=== PATIENT | male | born 1970 | race Caucasian/White ===

== ENCOUNTER 2016-04-30 10:01 | Emergency (ER) | payer OTHER ==
[~2016-04-30] VITALS: Ht 177.8 cm; Wt 117.9 kg
[~2016-04-30 10:01] MED LIST: ACHD5005 PO; ASPI325T32 PO; CEPH-507 PO; CIPR-120 PO; CLC500CT; DEXL60CA5 PO; HYDR-2890 PO; HYDR1TAB PO; HYOS0.1216 PO; IBUP-30 PO; MAGN100T6 PO; METO-270 PO; NITR-33 PO; OMEG-160 PO; PHEN200T27 PO; POLY119P PO; REQUIP; TR1O15 TP; UBID1CAP53 PO; ZLP5T
--- OUTSIDE RECORDS SUMMARY | 2016-04-30 10:07 | XMS REPORT | Continuity of Care Document ---
Author Author [facility] Organization [facility] Address Unknown Phone Unavailable Allergies Active Description Code Type Severity Reaction Onset Reported/Identified Relationship to Patient Clinical Status Yes No Known Drug Allergies [id number] Drug Allergy Unknown N/ A 07/30/2013 Medications Problems Date Dx Coded Attending Type Code Diagnosis Diagnosed By 09/15/2011 Ot 530.11 REFLUX ESOPHAGITIS 07/15/2012 CHASTITY MAHER MD Ot 530.81 ESOPHAGEAL REFLUX 07/15/2012 CHASTITY MAHER MD Ot 574.20 CHOLELITHIASIS NOS 07/15/2012 CHASTITY MAHER MD Ot 591 HYDRONEPHROSIS 07/15/2012 CHASTITY MAHER MD Ot 592.1 CALCULUS OF URETER 07/15/2012 CHASTITY MAHER MD R Ot 787.01 NAUSEA WITH VOMITING 07/15/2012 CHASTITY MAHER MD Ot 796.2 ELEV BL PRES W/O HYPERTN 08/08/2012 GORDON KINNEY, DARRICK Juares Ot 574.20 CHOLELITHIASIS NOS 08/01/2013 GABRIELA CAMERON MD Ot 591 HYDRONEPHROSIS 08/01/2013 GABRIELA CAMERON MD Ot 592.1 CALCULUS OF URETER 08/06/2013 GABRIELA CAMERON MD Ot 592.1 CALCULUS OF URETER 08/21/2013 GABRIELA CAMERON MD Ot 592.1 CALCULUS OF URETER 08/21/2013 GABRIELA CAMERON MD Ot V74.8 SCREEN-BACTERIAL DIS NEC 09/06/2013 GABRIELA CAMERON MD Ot 592.1 CALCULUS OF URETER 04/17/2014 Ot 789.00 04/17/2014 Ot 785.1 04/17/2014 Ot V72.84 04/17/2014 Ot 397.0 04/17/2014 Ot 424.0 04/17/2014 Ot 785.1 04/17/2014 Ot V17.49 04/17/2014 Ot 789.01 04/17/2014 NADER KINNEY, ISABEL A Ot 592.0 04/17/2014 GORDON KINNEY, DARRICK Juares Ot 575.8 04/17/2014 GORDON KINNEY, DARRICK Juares Ot V72.83 04/17/2014 GORDON KINNEY, DARRICK Juares Ot V74.8 04/17/2014 RAKESH KINNEY, GABRIELA A Ot 592.1 04/17/2014 RAKESH KINNEY, GABRIELA A Ot 592.1 04/17/2014 RAKESH KINNEY, GABRIELA A Ot 592.1 04/17/2014 RAKESH KINNEY, GABRIELA A Ot V72.84 04/17/2014 RAKESH KINNEY, GABRIELA A Ot 592.1 04/17/2014 RAKESH KINNEY, GABRIELA A Ot 592.1 04/17/2014 RAKESH KINNEY, GABRIELA A Ot V72.84 04/17/2014 GUNNAR KINNEY, CHASTITY Villarreal Ot 786.50 08/12/2014 Ot 789.00 08/12/2014 Ot 785.1 08/12/2014 Ot V72.84 08/12/2014 Ot 397.0 08/12/2014 Ot 424.0 08/12/2014 Ot 785.1 08/12/2014 Ot V17.49 08/12/2014 Ot 789.01 08/12/2014 NADER KINNEY, ISABEL A Ot 592.0 08/12/2014 GORDON KINNEY, DARRICK Juares Ot 575.8 08/12/2014 GORDON KINNEY, DARRICK Juares Ot V72.83 08/12/2014 GORDON KINNEY, DARRICK Juares Ot V74.8 08/12/2014 RAKESH KINNEY, GABRIELA A Ot 592.1 08/12/2014 RAKESH KINNEY, GABRIELA A Ot 592.1 08/12/2014 RAKESH KINNEY, GABRIELA A Ot 592.1 08/12/2014 RAKESH KINNEY, GABRIELA A Ot V72.84 08/12/2014 RAKESH KINNEY, GABRIELA A Ot 592.1 08/12/2014 RAKESH KINNEY, GABRIELA A Ot 592.1 08/12/2014 RAKESH KINNEY, GABRIELA A Ot V72.84 08/12/2014 GUNNAR KINNEY, CHASTITY R Ot 786.50 08/12/2014 RAKESH KINNEY, GABRIELA Granger Ot 592.0 06/18/2015 GELLENDER DO, EDILBERTO Granger Ot I10 ESSENTIAL (PRIMARY) HYPERTENSION 06/18/2015 GELLENDER DO, EDILBERTO Granger Ot K21.9 GASTRO-ESOPHAGEAL REFLUX DISEASE WITHOUT 06/18/2015 GELLENDER DO, EDILBERTO Granger Ot R07.9 CHEST PAIN, UNSPECIFIED 06/18/2015 GELLENDER DO, EDILBERTO Granger Ot I10 ESSENTIAL (PRIMARY) HYPERTENSION 06/18/2015 GELLENDER DO, EDILBERTO Granger Ot K21.9 GASTRO-ESOPHAGEAL REFLUX DISEASE WITHOUT 06/18/2015 GELLENDER DO, EDILBERTO Granger Ot R07.9 CHEST PAIN, UNSPECIFIED 06/23/2015 Ot 789.00 ABDOMINAL PAIN, UNSPECIFIED SITE 06/23/2015 Ot 785.1 PALPITATIONS 06/23/2015 Ot V72.84 EXAM PRE-OPERATIVE NOS 06/23/2015 Ot 397.0 TRICUSPID VALVE DISEASE 06/23/2015 Ot 424.0 MITRAL VALVE DISORDER 06/23/2015 Ot 785.1 PALPITATIONS 06/23/2015 Ot V17.49 FAMILY HISTORY OF OTHER CARDIOVASCULAR D 06/23/2015 Ot 789.01 ABDOMINAL PAIN, RIGHT UPPER QUADRANT 06/23/2015 NADER KINNEY, ISABEL Granger Ot 592.0 CALCULUS OF KIDNEY 06/23/2015 GORDON KINNEY, DARRICK Juares Ot 575.8 DIS OF GALLBLADDER NEC 06/23/2015 GORDON KINNEY, DARRICK Juares Ot V72.83 EXAM PRE-OPERATIVE NEC 06/23/2015 GORDON KINNEY, DARRICK Juares Ot V74.8 SCREEN-BACTERIAL DIS NEC 06/23/2015 RAKESH KINNEY, GABRIELA Granger Ot 592.1 CALCULUS OF URETER 06/23/2015 RAKESH KINNEY, GABRIELA Granger Ot 592.1 CALCULUS OF URETER 06/23/2015 RAKESH KINNEY, GABRIELA Granger Ot 592.1 CALCULUS OF URETER 06/23/2015 RAKESH KINNEY, GABRIELA Granger Ot V72.84 EXAM PRE-OPERATIVE NOS 06/23/2015 GABRIELA CAMERON MD Ot 592.1 CALCULUS OF URETER 06/23/2015 GABRIELA CAMERON MD Ot 592.1 CALCULUS OF URETER 06/23/2015 RAKESH KINNEY, GABRIELA Granger Ot V72.84 EXAM PRE-OPERATIVE NOS 06/23/2015 GUNNAR KINNEY, CHASTITY R Ot 786.50 CHEST PAIN NOS 06/23/2015 RAKESH KINNEY, GABRIELA Granger Ot 592.0 CALCULUS OF KIDNEY 06/23/2015 GUNNAR KINNEY, CHASTITY R Ot 368.8 VISUAL DISTURBANCES NEC 06/23/2015 GUNNAR KINNEY, CHASTITY R Ot 784.0 HEADACHE 06/24/2015 AMARILIS KINNEY FACC, LEONOR FACP CCDS Ot R07.9 CHEST PAIN, UNSPECIFIED 10/11/2015 DRAGAN CHANDRAKANT ERWIN Ot L03.115 CELLULITIS OF RIGHT LOWER LIMB 10/11/2015 DRAGAN CHANDRAKANT ERWIN Ot S70.361A INSECT BITE (NONVENOMOUS), RIGHT THIGH , 10/11/2015 CHANDRAKANT ARCHIBALD DO Ot Y92.017 GARDEN OR YARD IN SINGLE-FAMILY ( PRIVATE 10/11/2015 DRAGAN CHANDRAKANT ERWIN Ot Y93.H9 ACTVTY,OTH W EXTER PROPERTY LAND MAINT 10/11/2015 CHANDRAKANT ARCHIBALD DO Ot Y99.8 OTHER EXTERNAL CAUSE STATUS 10/11/2015 DRAGAN CHANDRAKANT ERWIN Ot Z23 ENCOUNTER FOR IMMUNIZATION 10/14/2015 DRAGAN CHANDRAKANT ERWIN Ot L03.115 CELLULITIS OF RIGHT LOWER LIMB 10/14/2015 CHANDRAKANT ARCHIBALD DO Ot S70.361A INSECT BITE (NONVENOMOUS), RIGHT THIGH , 10/14/2015 DRAGAN CHANDRAKANT ERWIN Ot Y92.017 GARDEN OR YARD IN SINGLE-FAMILY ( PRIVATE 10/14/2015 DRAGAN CHANDRAKANT ERWIN Ot Y93.H9 ACTVTY,OTH W EXTER PROPERTY LAND MAINT 10/14/2015 DRAGAN CHANDRAKANT ERWIN Ot Y99.8 OTHER EXTERNAL CAUSE STATUS 10/14/2015 DRAGAN CHANDRAKANT ERWIN Ot Z23 ENCOUNTER FOR IMMUNIZATION 02/23/2016 Ot 785.1 PALPITATIONS 02/23/2016 Ot V72.84 EXAM PRE-OPERATIVE NOS 02/23/2016 Ot 397.0 TRICUSPID VALVE DISEASE 02/23/2016 Ot 424.0 MITRAL VALVE DISORDER 02/23/2016 Ot 785.1 PALPITATIONS 02/23/2016 Ot V17.49 FAMILY HISTORY OF OTHER CARDIOVASCULAR D 02/23/2016 Ot 789.01 ABDOMINAL PAIN, RIGHT UPPER QUADRANT 02/23/2016 ISABEL DOE MD Ot 592.0 CALCULUS OF KIDNEY 02/23/2016 GORDON KINNEY, DARRICK Juares Ot 575.8 DIS OF GALLBLADDER NEC 02/23/2016 GORDON KINNEY, DARRICK Juares Ot V72.83 EXAM PRE-OPERATIVE NEC 02/23/2016 GORDON KINNEY, DARRICK Juares Ot V74.8 SCREEN-BACTERIAL DIS NEC 02/23/2016 GABRIELA CAMERON MD Ot 592.1 CALCULUS OF URETER 02/23/2016 RAKESH KINNEY, GABRIELA Granger Ot 592.1 CALCULUS OF URETER 02/23/2016 RAKESH KINNEY, GABRIELA Granger Ot 592.1 CALCULUS OF URETER 02/23/2016 GABRIELA CAMERON MD Ot V72.84 EXAM PRE-OPERATIVE NOS 02/23/2016 GABRIELA CAMERON MD Ot 592.1 CALCULUS OF URETER 02/23/2016 RAKESH KINNEY, GABRIELA Granger Ot 592.1 CALCULUS OF URETER 02/23/2016 RAKESH KINNEY, GABRIELA Granegr Ot V72.84 EXAM PRE-OPERATIVE NOS 02/23/2016 GUNNAR KINNEY, CHASTITY R Ot 786.50 CHEST PAIN NOS 02/23/2016 GABRIELA CAMERON MD Ot 592.0 CALCULUS OF KIDNEY 02/23/2016 GUNNAR KINNEY, CHASTITY R Ot 368.8 VISUAL DISTURBANCES NEC 02/23/2016 CHASTITY MAHER MD R Ot 784.0 HEADACHE 02/23/2016 AMARILIS KINNEY FACC, LEONOR FACP CCDS Ot R07.9 CHEST PAIN, UNSPECIFIED 02/24/2016 GABRIELA CAMERON MD Ot N20.0 CALCULUS OF KIDNEY 04/04/2016 Ot 785.1 PALPITATIONS 04/04/2016 Ot V72.84 EXAM PRE-OPERATIVE NOS 04/04/2016 Ot 397.0 TRICUSPID VALVE DISEASE 04/04/2016 Ot 424.0 MITRAL VALVE DISORDER 04/04/2016 Ot 785.1 PALPITATIONS 04/04/2016 Ot V17.49 FAMILY HISTORY OF OTHER CARDIOVASCULAR D 04/04/2016 Ot 789.01 ABDOMINAL PAIN, RIGHT UPPER QUADRANT 04/04/2016 ISABEL DOE MD Ot 592.0 CALCULUS OF KIDNEY 04/04/2016 GORDON KINNEY, DARRICK Juares Ot 575.8 DIS OF GALLBLADDER NEC 04/04/2016 GORDON KINNEY, DARRICK Juares Ot V72.83 EXAM PRE-OPERATIVE NEC 04/04/2016 GORDON KINNEY, DARRICK Juares Ot V74.8 SCREEN-BACTERIAL DIS NEC 04/04/2016 GABRIELA CAMERON MD Ot 592.1 CALCULUS OF URETER 04/04/2016 GABRIELA CAMERON MD Ot 592.1 CALCULUS OF URETER 04/04/2016 GABRIELA CAMERON MD Ot 592.1 CALCULUS OF URETER 04/04/2016 GABRIELA CAMERON MD Ot V72.84 EXAM PRE-OPERATIVE NOS 04/04/2016 RAKESH KINNEY, GABRIELA Granger Ot 592.1 CALCULUS OF URETER 04/04/2016 RAKESH KINNEY, GABRIELA Granger Ot 592.1 CALCULUS OF URETER 04/04/2016 GABRIELA CAMERON MD Ot V72.84 EXAM PRE-OPERATIVE NOS 04/04/2016 CHASTITY MAHER MD Ot 786.50 CHEST PAIN NOS 04/04/2016 GABRIELA CAMERON MD Ot 592.0 CALCULUS OF KIDNEY 04/04/2016 CHASITTY MAHER MD Ot 368.8 VISUAL DISTURBANCES NEC 04/04/2016 CHASTITY MAHER MD Ot 784.0 HEADACHE 04/04/2016 AMARILIS KINNEY FACC, LEONOR MCLAIN CCDS Ot R07.9 CHEST PAIN, UNSPECIFIED 04/04/2016 GABRIELA CAMERON MD Ot N20.0 CALCULUS OF KIDNEY Procedures Results Encounters ACCT No. Visit Date/Time Discharge Status Pt. Type Provider Facility Loc./Unit Complaint [id number] 10/11/2015 20:10:00 2015 22:45:00 DIS Emergency CHANDRAKANT ARCHIBALD DO [facility] ER SPIDER BITE ON R THIGH [id number] 06/18/2015 06:30:00 2015 20:35:00 DIS Inpatient EDILBERTO GARCIA DO [facility] CSD CHEST PAIN [id number] 08/15/2014 07:49:00 2014 23:59:59 CLS Outpatient CHASTITY MAHER MD [facility] RAD MORSE,BLURRED VISION, [id number] 07/22/2014 16:30:00 2014 23:59:59 CLS Outpatient GABRIELA CAMERON MD [facility] RAD STONES [id number] 11/11/2013 07:05:00 2013 23:59:59 CLS Outpatient GUNNAR KINNEY, CHASTITY R [facility] CARD CP [id number] 09/06/2013 10:05:00 2013 14:25:00 DIS [facility] [id number] 09/05/2013 07:31:00 2013 23:59:59 CLS Outpatient GABRIELA CAMERON MD [facility] PREOP RIGHT URETERAL STONE [id number] 09/04/2013 12:16:00 2013 23:59:59 CLS Outpatient GABRIELA CMAERON MD [facility] RAD STONES [id number] 08/21/2013 05:58:00 2013 10:00:00 DIS Outpatient GABRIELA CAMERON MD [facility] SDC RIGHT URETERAL STONE [id number] 08/20/2013 07:14:00 2013 23:59:59 CLS Outpatient GABRIELA CAMERON MD [facility] PREOP RIGHT URETERAL STONE [id number] 08/19/2013 13:32:00 2013 23:59:59 CLS Outpatient GABRIELA CAMERON MD [facility] RAD RT STONE [id number] 08/06/2013 06:26:00 2013 13:25:00 DIS Outpatient GABRIELA CAMERON MD [facility] SDC RIGHT STONE [id number] 08/05/2013 14:37:00 2013 23:59:59 CLS Outpatient GABRIELA CAMERON MD [facility] RAD STONES [id number] 07/30/2013 14:50:00 2013 12:15:00 DIS Inpatient GABRIELA CAMERON MD [facility] SURGICAL R URETERAL STONE,INTRACTABLE PAIN [id number] 08/08/2012 09:50:00 2012 21:10:00 DIS Outpatient GORDON KINNEY, DARRICK Juares [facility] SDC GALLBLADDER SLUDGE [id number] 08/03/2012 10:32:00 2012 23:59:59 CLS Outpatient DARRICK LEYVA MD [facility] PREOP GALLBLADDER SLUDGE [id number] 07/16/2012 07:14:00 2012 23:59:59 CLS Outpatient NADER KINNEY, ISABEL Granger [facility] RAD KIDNEY STONE [id number] 07/15/2012 04:57:00 2012 15:10:00 DIS Inpatient GUNNAR KINNEY, CHASTITY Villarreal [facility] 4TH NEPHROLITHIASIS, ABDOMINAL PAIN, N/V [id number] 02/23/2016 07:49:00 ACT Outpatient RAKESH KINNEY, GABRIELA Granger [facility] RAD RENAL STONE [id number] 06/23/2015 09:10:00 ACT Outpatient AMARILIS KINNEY FACC, LEONOR MCLAIN CCDS [facility] CARD CHEST PAIN [id number] 04/17/2014 03:50:00 Document Registration [id number] 06/19/2012 09:01:00 Document Registration [id number] 12/12/2011 09:08:00 Document Registration [id number] 09/15/2011 13:13:00 Document Registration [id number] 09/14/2011 07:04:00 Document Registration [id number] 08/22/2011 08:11:00 Document Registration [id number] 05/24/2010 15:49:00 Document Registration
[2016-04-30] MEDS ORDERED: NS IV 1000 ML 1,000 ML IV ONE (11:07)
[2016-04-30 11:30] LABS: BASOPHILS % (AUTO) 0 % (0-10); EOSINOPHILS % (AUTO) 0 % (0-10); LYMPHOCYTES # (AUTO) 0.4 X 10^3 (1.0-4.0); LYMPHOCYTES % (AUTO) 4 % (12-44); MEAN CORPUSCULAR HEMOGLOBIN 29 PG (25-34); MEAN CORPUSCULAR HGB CONC 35 G/DL (32-36); MEAN CORPUSCULAR VOLUME 85 FL (80-99); MEAN PLATELET VOLUME 10.1 FL (7.4-10.4); MONOCYTES # (AUTO) 0.7 X 10^3 (0.0-1.0); MONOCYTES % (AUTO) 6 % (0-12); NEUTROPHILS # (AUTO) 9.2 X 10^3 (1.8-7.8); NEUTROPHILS % (AUTO) 90 % (42-75); PLATELET COUNT 220 10^3/uL (130-400); RED BLOOD COUNT 5.59 10^6/uL (4.35-5.85); RED CELL DISTRIBUTION WIDTH 12.9 % (10.0-14.5); WHITE BLOOD COUNT 10.3 10^3/uL (4.3-11.0)
--- NOTE | 2016-04-30 11:44 | ED GI ---
General Chief Complaint: Cough/Cold/Flu Symptoms Stated Complaint: FLU LIKE SYMPTOMS Nursing Triage Note: nausea/vomitting/diarrhea, intermittant fever since 1800 04/29/16 Sepsis Screen: No Definite Risk Source of Information: Patient, Family Exam Limitations: No Limitations History of Present Illness Time Seen By Provider: 11:40 Initial Comments This 45-year-old male presents with persistent diarrhea nausea and vomiting that began last evening at 6 p.m. (18 hours ago). The patient has had associated fever. He denies blood in his stool or emesis. He denies similar episode in the past. He may have ingested fish last night that was spoiled. The patient denies other family member with similar illness. Past medical history includes hypertension and reflux. Allergies and Home Medications Allergies Coded Allergies: No Known Drug Allergies (Unverified , 07/30/13) Home Medications Dexlansoprazole 60 Mg Cap.dr.mp 60 MG PO DAILY (Reported) Metoprolol Succinate 25 Mg Tab.er.24h 30Days 25 MG PO DAILY Prescribed by: ENRIQUE HERNANDEZ on 06/18/151906 Review of Systems Constitutional: fever malaise EENTM: No Blurred Vision Respiratory: Denies Cough Cardiovascular: Denies Chest Pain Gastrointestinal: Abdominal Pain Diarrhea NauseaDenies Rectal Bleeding, Vomiting Genitourinary: Denies Burning, Denies Frequency Musculoskeletal: No back pain, No joint pain Skin: No rash Psychiatric/Neurological: Denies Anxiety, Denies Depressed Endocrine: Denies Excessive Sweating Hematologic/Lymphatic: Denies Anemia Past Ytcipbx-Dmyjnf-Lftejt Hx Patient Social History Alcohol Use: Denies Use Recreational Drug Use: No Smoking Status: Never a Smoker 2nd Hand Smoke Exposure: No Recent Foreign Travel: No Contact w/Someone Who Travel: No Recent Infectious Disease Expo: No Recent Hopitalizations: No Immunizations Up To Date Tetanus Booster (TDap): Unknown Seasonal Allergies Seasonal Allergies: No Surgeries HX Surgeries: Yes (Orthopedic- left arm; left wrist. CYSTO, ESWL) Surgeries: Gallbladder, Orthopedic, Rectal Respiratory Hx Respiratory Disorders: No Cardiovascular Hx Cardiac Disorders: Yes Cardiac Disorders: Hypertension Neurological Hx Neurological Disorders: No Reproductive System Hx Reproductive Disorders: No Sexually Transmitted Disease: No HIV/AIDS: No Genitourinary Hx Genitourinary Disorders: Yes (KIDNEY STONES) Genitourinary Disorders: Kidney Stones Gastrointestinal Hx Gastrointestinal Disorders: Yes Gastrointestinal Disorders: Gastroesophageal Reflux Musculoskeletal Hx Musculoskeletal Disorders: Yes Musculoskeletal Disorders: Fractures Endocrine Hx Endocrine Disorders: No HEENT HX ENT Disorders: No Cancer Hx Cancer: No Psychosocial Hx Psychiatric Problems: No Integumentary HX Skin/Integumentary Disorder: No Blood Transfusions Hx Blood Disorders: No Adverse Reaction to a Blood Tr: No Reviewed Nursing Assessment Reviewed/Agree w Nursing PMH: Yes Family Medical History Significant Family History: No Pertinent Family Hx Family Medial History: Family history: Diabetes mellitus 19 MOTHER Hypertension 19 FATHER No Family History of: Cancer Congestive heart failure Dementia Myocardial infarction Stroke Physical Exam Vital Signs VS - Last 72 Hours, by Label 04/30/16 04/30/16 04/30/16 04/30/16 11:09 11:10 11:10 12:09 Temp 100.1 Pulse 82 82 80 100 110 Resp 18 12 B/P 109/68 114/76 Pulse Ox 97 95 O2 Delivery Room Air Room Air Room Air Capillary Refill : Less Than 3 Seconds General Appearance: WD/WN mild distress HEENT: normal ENT inspection Neck: normal inspection Respiratory: lungs clear normal breath sounds Cardiovascular: normal peripheral pulses regular rate, rhythm Gastrointestinal: abnormal bowel sounds (hyperactive bowel sounds were noted on auscultation of the abdomen)No rebound, tenderness (there was mild tenderness to palpation diffusely on abdominal exam) Extremities: normal range of motion non-tender normal inspection Back: normal inspection Skin: normal color warm/dry Progress/Results/Core Measures Results/Orders Lab Results Laboratory Tests Test 04/30/16 11:15 Range/Units Alanine Aminotransferase (ALT/SGPT) 67 H 0-55 U/L Albumin 4.2 3.2-4.5 G/DL Alkaline Phosphatase 58 40-136 U/L Anion Gap 13 5-14 MMOL/L Aspartate Amino Transf (AST/SGOT) 40 H 5-34 U/L BUN/Creatinine Ratio 17 Basophils # (Auto) 0.0 0.0-0.1 10^3/uL Basophils (%) (Auto) 0 0-10 % Blood Morphology Comment NORMAL Blood Urea Nitrogen 18 7-18 MG/DL Calcium Level 8.7 8.5-10.1 MG/DL Carbon Dioxide Level 22 21-32 MMOL/L Chloride Level 105 98-107 MMOL/L Creatinine 1.07 0.60-1.30 MG/DL Eosinophils # (Auto) 0.0 0.0-0.3 10^3/uL Eosinophils (%) (Auto) 0 0-10 % Estimat Glomerular Filtration Rate > 60 Glucose Level 115 H 70-105 MG/DL Hematocrit 47 40-54 % Hemoglobin 16.4 13.3-17.7 G/DL Lipase 5 L 8-78 U/L Lymphocytes # (Auto) 0.4 L 1.0-4.0 X 10^3 Lymphocytes % (Manual) 4 % Lymphocytes (%) (Auto) 4 L 12-44 % Mean Corpuscular Hemoglobin 29 25-34 PG Mean Corpuscular Hemoglobin Concent 35 32-36 G/DL Mean Corpuscular Volume 85 80-99 FL Mean Platelet Volume 10.1 7.4-10.4 FL Monocytes # (Auto) 0.7 0.0-1.0 X 10^3 Monocytes % (Manual) 6 % Monocytes (%) (Auto) 6 0-12 % Neutrophils # (Auto) 9.2 H 1.8-7.8 X 10^3 Neutrophils % (Manual) 90 % Neutrophils (%) (Auto) 90 H 42-75 % Platelet Count 220 130-400 10^3/uL Potassium Level 3.6 3.6-5.0 MMOL/L Red Blood Count 5.59 4.35-5.85 10^6/uL Red Cell Distribution Width 12.9 10.0-14.5 % Sodium Level 140 135-145 MMOL/L Total Bilirubin 1.2 H 0.1-1.0 MG/DL Total Protein 7.1 6.4-8.2 G/DL White Blood Count 10.3 4.3-11.0 10^3/uL Micro Results Microbiology 04/30/16 Influenza Types A,B Antigen (DAVID) - Final, Complete My Orders Orders-KONG NAILS MD Influenza A And B Antigens (04/30/16 11:07) Saline Lock/Iv-Start (04/30/16 11:07) Ns Iv 1000 Ml (Sodium Chloride 0.9%) (04/30/16 11:07) Cbc With Automated Diff (04/30/16 11:07) Comprehensive Metabolic Panel (04/30/16 11:07) Manual Differential (04/30/16 11:15) Fentanyl Injection (Sublimaze Injection (04/30/16 11:45) Ondansetron Injection (Zofran Injectio (04/30/16 11:45) Lipase (04/30/16 11:39) Medications Given in ED Current Medications Medications Dose Ordered Sig/Taran Route Start Time Stop Time Status Last Admin Dose Admin Fentanyl Citrate 50 mcg ONCE ONCE IVP 04/30/16 11:45 04/30/16 11:46 DC 04/30/16 11:44 50 MCG Ondansetron HCl 4 mg ONCE ONCE IVP 04/30/16 11:45 04/30/16 11:46 DC 04/30/16 11:44 4 MG Sodium Chloride 1,000 ml @ 0 mls/hr Q0M ONCE IV 04/30/16 11:07 04/30/16 11:10 DC 04/30/16 11:18 0 MLS/HR Vital Signs/I&O Vital Sign - Last 12Hours 04/30/16 04/30/16 04/30/16 04/30/16 11:09 11:10 11:10 12:09 Temp 100.1 Pulse 82 82 80 100 110 Resp 18 12 B/P 109/68 114/76 Pulse Ox 97 95 O2 Delivery Room Air Room Air Room Air Blood Pressure Mean: 82 Progress Note : Time: 12:27 Progress Note The patient was treated with a liter of fluids. He received 50 g of fentanyl and 4 mg of Zofran IV. The patient improved. He was able to tolerate liquids. Patient's laboratory evaluation was essentially unremarkable Treatment course was recommended for the patient for more Zofran as needed at home, clear liquids today, and return to normal functions tomorrow if he was asymptomatic. He was invited to return to the emergency department if he had any further problems or questions Departure Impression Impression: Primary Impression: Viral gastroenteritis Disposition: 01 HOME, SELF-CARE Condition: Improved Departure-Patient Inst. Decision time for Depature: 12:29 Referrals: CHASTITY CHRIS MD (PCP/Family) Primary Care Physician Patient Instructions: Viral Gastroenteritis, Adult (DC) Add. Discharge Instructions: Clear liquids today. Zofran as needed for nausea and vomiting. Return if any problems or questions. Follow-up with Dr. Chris Monday if unable to return to work. All discharge instructions reviewed with patient and/or family. Voiced understanding. KONG NAILS MD Apr 30, 2016 11:44
[2016-04-30] MEDS ORDERED: ONDANSETRON 4 MG/2 ML (SDV) Z0FRAN IVP ONE (11:45)
[2016-04-30] MEDS ORDERED: fentaNYL INJECTION 100 MCG/2 ML AMP IVP ONE (11:45)
[2016-04-30 11:55] LABS: ALANINE AMINOTRANSFERASE 67 U/L (0-55); ALBUMIN 4.2 G/DL (3.2-4.5); ANION GAP 13 MMOL/L (5-14); ASPARTATE AMINO TRANSFERASE 40 U/L (5-34); BILIRUBIN,TOTAL 1.2 MG/DL (0.1-1.0); BLOOD UREA NITROGEN 18 MG/DL (7-18); BUN/CREATININE RATIO 17; CALCIUM 8.7 MG/DL (8.5-10.1); CARBON DIOXIDE 22 MMOL/L (21-32); CHLORIDE 105 MMOL/L (98-107); CREATININE SERUM 1.07 MG/DL (0.60-1.30); GFR ESTIMATED > 60; GLUCOSE 115 MG/DL (70-105); POTASSIUM 3.6 MMOL/L (3.6-5.0); SODIUM 140 MMOL/L (135-145); TOTAL PROTEIN 7.1 G/DL (6.4-8.2)
[2016-04-30 12:05] LABS: LYMPHOCYTES % (MANUAL) 4 %; NEUTROPHILS % (MANUAL) 90 %
[2016-04-30 12:09] VITALS: BP 114/76
[2016-04-30 12:33] VITALS: BP 116/79
== END 2016-04-30 12:33 | disposition home or self-care (01) ==
LOC: EDUNIT# 10:01 → ER 10:02
DX: K52.9 Noninfective gastroenteritis and colitis, unspecified (principal); I10 Essential (primary) hypertension; Z79.899 Other long term (current) drug therapy
CPT/HCPCS: 36415; 80053; 83690; 85007; 85027; 87804; 96361; 96374; 96375

== ENCOUNTER → 2017-04-06 | Outpatient (CLI) | payer OTHER ==
[~2017-04-06] MED LIST changes: -METO-270 PO; +METO-387 PO
--- NOTE | 2017-04-06 12:14 | Diagnostic Imaging Report ---
INDICATION: History of kidney stones. COMPARISON: 02/23/16 FINDINGS: Two views of the abdomen demonstrate stable tiny calcification in the mid to distal pole of the left kidney. No additional calculi are visualized. The bowel gas pattern is normal. IMPRESSION: Stable tiny calculi in mid to distal pole of left kidney measuring approximately 3 mm. Dictated by: Dictated on workstation # [id number]
== END ==
LOC: RAD 06:57
PROVIDERS: ATTEND Urology
DX: N20.0 Calculus of kidney (principal)
CPT/HCPCS: 74018

== ENCOUNTER → 2017-06-15 | Outpatient (CLI) | payer OTHER ==
--- NOTE | 2017-06-16 13:35 | Diagnostic Imaging Report ---
INDICATION: Left leg pain post long car ride. TECHNIQUE: Grayscale with color-flow and Doppler waveform evaluation of the left lower extremity deep venous system. CORRELATION STUDY: None FINDINGS: Color and grayscale sonographic images demonstrate no intraluminal defect within the visualized portion of the common femoral, superficial femoral and/or popliteal veins to suggest thrombus formation. These vessels demonstrate normal response to compression and augmentation. No soft tissue fluid collection. IMPRESSION: 1. Negative for deep venous thrombosis of the left leg. Dictated by: Dictated on workstation # [id number]
== END ==
LOC: RAD 13:35
PROVIDERS: ATTEND Internal Medicine Cardiovascular Disease
DX: R07.89 Other chest pain (principal); M79.605 Pain in left leg; Z86.73 Personal history of transient ischemic attack (TIA), and cerebral infarction without residual deficits; E66.8 Other obesity; R00.2 Palpitations; I10 Essential (primary) hypertension
CPT/HCPCS: 93225; 93226

== ENCOUNTER → 2017-06-29 | Outpatient (CLI) | payer OTHER | LOC: CARD 11:30 | PROVIDERS: ATTEND Internal Medicine Cardiovascular Disease | DX: R07.89 Other chest pain (principal); M79.605 Pain in left leg; Z86.73 Personal history of transient ischemic attack (TIA), and cerebral infarction without residual deficits; E66.8 Other obesity; R00.2 Palpitations; I10 Essential (primary) hypertension | CPT/HCPCS: 93306 ==

== ENCOUNTER → 2018-04-03 | Outpatient (CLI) | payer OTHER ==
--- NOTE | 2018-04-03 08:14 | Diagnostic Imaging Report ---
INDICATION: Renal STONES. TECHNIQUE: Supine frontal view of the abdomen. COMPARISON: 04/06/2017 FINDINGS: Small calcifications are seen in the inferior left kidney. There are phleboliths in the pelvis which appears stable. No new calculi are seen. No dilated loops of small bowel are seen. There is no large collection of free air. IMPRESSION: Stable small calculi in the inferior left kidney. Dictated by: Dictated on workstation # [id number]
== END ==
LOC: RAD 07:12
PROVIDERS: ATTEND Urology
DX: N20.0 Calculus of kidney (principal)
CPT/HCPCS: 74018

== ENCOUNTER 2022-04-27 05:38 | Outpatient (CLI) | payer BC ==
[~2022-04-27] VITALS: Ht 177.8 cm; Wt 117.6 kg
[~2022-04-27 05:38] MED LIST changes: -METO-387 PO; +MTP25TSR PO
[2022-04-27] MEDS ORDERED: MELO15TA39 PO (15:54)
== END 2022-04-27 15:56 | disposition home or self-care (01) ==
LOC: PREOP 05:38
PROVIDERS: ATTEND Internal Medicine
DX: Z01.818 Encounter for other preprocedural examination (principal)

== ENCOUNTER 2022-05-06 07:31 | Day surgery (SDC) | payer BC, OTHER ==
--- NOTE | 2022-04-25 19:46 | HISTORY AND PHYSICAL ---
DATE OF SERVICE: 05/06/2022 COLONOSCOPY HISTORY AND PHYSICAL HISTORY OF PRESENT ILLNESS: The patient is a 51-year-old white male being set up for screening colonoscopy. He is deemed to be of average risk as he is not aware of any family history for colon cancer or colon polyps. He had been seen by Loly, my nurse practitioner, on the and was given meloxicam for recurrence of symptoms consistent with cervical radiculopathy. He has some intermittent bilateral arm numbness and pain that radiates from the base of the neck to the right shoulder. He denies associated weakness. He gets some benefit from meloxicam for about 18 hours and then it wears off. This has happened one other time where he did respond to meloxicam with resolution of symptoms. He has denied any trauma or known exacerbating factors. Otherwise, he has felt well. PHYSICAL EXAMINATION: GENERAL: Reveals a pleasant, overweight white male in no acute distress. Weight was 259.4 pounds. VITAL SIGNS: Blood pressure 138/82. CHEST: Clear. CARDIOVASCULAR: Reveals a regular rate and rhythm without murmur, S3, or S4. EXTREMITIES: Reveal no cyanosis, clubbing or edema. ABDOMEN: Soft, supple without mass, organomegaly, or tenderness. He does have mild diastasis recti. ASSESSMENT AND PLAN: 1. The patient is being set up for screening colonoscopy deemed to be of average risk. Prep instructions were given and questions were answered. 2. Presumed cervical radiculopathy. We will initiate prednisone 40 mg x4 days, 20 mg x4 days and then off if there are progressive symptoms, we will need to proceed with MRI of the C-spine and consideration for appropriate referral. We will discuss further at the time of colonoscopy. The patient is to call for early evaluation for worsening symptoms. Job ID: [id number] DocumentID: [id number] Dictated Date: 04/13/2022 18:25:00 Beverage Specialist Date: 04/13/2022 18:36:00 Dictated By: KONG HARRELL MD
[~2022-05-06] VITALS: Ht 177.8 cm; Wt 117.6 kg
[~2022-05-06 07:31] MED LIST changes: +MELO15TA39 PO
[2022-05-06] MEDS ORDERED: LACTATED RINGERS 1,000 ML IV STA (07:39)
[2022-05-06 07:49] VITALS: BP 130/88
--- NOTE | 2022-05-06 07:59 | Pre-Op Note & Conscious Sedat ---
Pre-Operative Progress Note Date H&P Reviewed: May 06, 2022 Time H&P Reviewed: 07:58 History & Physical: H&P Reviewed, Patient Examed, No changes noted Pre-Op Diagnosis: screening Conscious Sedation Pre-Proced ASA Score 2 For ASA 3 and 4: Consider anesthesia and medical clearance. Also, for patients with a history of failed moderate sedation consider anesthesia. Airway Lungs Heart ASA score ASA 1: a normal healthy patient ASA 2: a patient with a mild systemic disease (mid diabetes, controlled hypertension, obesity ASA 3: a patient with a severe systemic disease that limits activity (angina, COPD, prior Myocardial infarction) ASA 4: a patient with an incapacitating disease that is a constant threat to life (CHF, renal failure) ASA 5: a moribund patient not expected to survive 24 hrs. (ruptured aneurysm) ASA 6: a declared brain- patient whose organs are being harvested. For emergent operations, add the letter E after the classification Mallampati Classification Grade 2 Sedation Plan Analgesia, Amnesia, Plan communicated to team members, Discussed options with patient/fam, Discussed risks with patient/fam The patient is an appropriate candidate to undergo the planned procedure, sedation, and anesthesia. The patient immediately re-assessed prior to indication. KONG HARRELL MD May 06, 2022 07:59
[2022-05-06] MEDS ORDERED: PROPOFOL INJECTION 50 ML IV ONE (08:48)
--- NOTE | 2022-05-06 08:50 | Anesthesia-General Post-Op ---
MAC Patient Condition Mental Status/LOC: Same as Preop Cardiovascular: Satisfactory Nausea/Vomiting: Absent Respiratory: Satisfactory Pain: Controlled Complications: Absent Post Op Complications Complications None Follow Up Care/Instructions Patient Instructions None needed. Anesthesiology Discharge Order Discharge Order Patient is doing well, no complaints, stable vital signs, no apparent adverse anesthesia problems. No complications reported per nursing. ELLYN VEGA CRNA May 06, 2022 08:50
--- NOTE | 2022-05-06 08:51 | Progress Note-Post Operative ---
Post-Procedure Note Physician (s)/Make Up Worker (s) Physician KONG HARRELL MD Pre-Procedure Diagnosis Pre-Procedure Diagnosis: screening Post-Procedure Diagnosis Post-operative diagnosis: Prior to undergoing colonoscopy digital rectal evaluation was performed. Anal suture tone was normal and the perianal reflexes intact. Prostate was normal in size and a nodular digital inspection. No abnormalities noted on digital inspection anal canal or distal rectal vault. The colonoscope was then inserted into the rectum and under direct visualization advanced to the cecum. The cecum was identified by identification of the ileocecal valve and cecal strap. Photographic documentation was obtained. Careful inspection was made as the colonoscope was withdrawn. Quality the prep was good. Findings: There were no evidence for internal or external hemorrhoids. The rectum sigmoid colon descending colon splenic flexure transverse colon hepatic flexure unremarkable. 3 mm sessile proximal ascending polyp was noted it was photographed and biopsied and ablated with about a cc of blood loss that it ceased during visualization. The ileocecal valve and cecum were unremarkable. Assessment: 1 diminutive polyp was removed via hot forceps from the proximal ascending colon with otherwise normal colonoscopy to cecum. As long as there are no surprises on histopathology report we will advocate consideration for repeat screening colonoscopy in 10 years. KONG HARRELL MD May 06, 2022 08:51
[2022-05-06 08:55] VITALS: BP 108/74
[2022-05-06 09:15] VITALS: BP 115/75
[2022-05-06 09:46] VITALS: BP 115/75
== END 2022-05-06 09:40 | disposition home or self-care (01) ==
LOC: ENDO 07:31
PROVIDERS: ATTEND Internal Medicine
DX: Z12.11 Encounter for screening for malignant neoplasm of colon (principal); D12.2 Benign neoplasm of ascending colon; R20.0 Anesthesia of skin; M54.2 Cervicalgia; M25.511 Pain in right shoulder

== ENCOUNTER → 2022-05-20 | Outpatient (CLI) | payer BC ==
--- NOTE | 2022-05-20 08:28 | Diagnostic Imaging Report ---
INDICATION: Pre-MRI screening AP and oblique views of left shoulder are obtained. FINDINGS: No acute fracture or dislocation is identified. No abnormal lytic or sclerotic focus is seen, and there is no radiopaque foreign body. IMPRESSION: No acute abnormality. Dictated by: Dictated on workstation # [id number]
--- NOTE | 2022-05-20 08:30 | Diagnostic Imaging Report ---
INDICATION: Pre-MRI screening AP, oblique and lateral views of the left wrist are obtained. There is a well seated threaded screw in the scaphoid bone. Old mildly displaced ulnar styloid fracture is seen. There may be punctate metallic fragment within the superficial tissues of the volar wrist which is of likely no significance for MRI scanner. IMPRESSION: Surgical and old traumatic findings in the wrist without unexpected radiopaque foreign object to preclude MRI scanning. Dictated by: Dictated on workstation # [id number]
--- NOTE | 2022-05-20 08:31 | Diagnostic Imaging Report ---
INDICATION: Pre-MRI screening AP and lateral views of the humerus reveal distal humeral fixation plate and screws which appear to be well seated. There is no lucency to indicate loosening. There is no evidence of acute abnormality or unexpected radiopaque foreign object. IMPRESSION: No acute abnormality with intact distal humeral shaft hardware. Dictated by: Dictated on workstation # [id number]
--- NOTE | 2022-05-20 11:15 | Diagnostic Imaging Report ---
FOREARM, LEFT, 2 VIEWS INDICATION: MRI workup COMPARISON: Wrist radiographs of 05/20/2022 TECHNIQUE: 2 views of the left forearm. FINDINGS: There is a Maycol type screw within the scaphoid. Plate and screw fixation of the distal humerus is incompletely imaged. No acute fracture or concerning focal osseous lesion. IMPRESSION: 1. Orthopedic hardware in the scaphoid and distal humerus should not preclude MRI examination. Dictated by: Dictated on workstation # [id number]
== END ==
LOC: RAD 07:10
PROVIDERS: ATTEND Internal Medicine
DX: Z01.818 Encounter for other preprocedural examination (principal); Z98.890 Other specified postprocedural states
CPT/HCPCS: 73030; 73060; 73090; 73110

== ENCOUNTER 2022-05-23 15:39 | Outpatient (RCR) | payer BC | END 2022-05-27 | disposition home or self-care (01) | PROVIDERS: ATTEND Nurse Practitioner Family | DX: M54.12 Radiculopathy, cervical region (principal) ==

== ENCOUNTER → 2022-05-24 | Outpatient (CLI) | payer BC ==
--- NOTE | 2022-05-24 09:14 | Diagnostic Imaging Report ---
PROCEDURE: MR imaging cervical spine without contrast. TECHNIQUE: Multiplanar, multisequence MR imaging of the cervical spine was performed without contrast. INDICATION: Neck pain. Right shoulder and bilateral hand pain. COMPARISON: None FINDINGS: Static alignment of the cervical spine is maintained. There is no significant anteroretrolisthesis. There is no evidence of jumped facets. Vertebral body heights are maintained. There is no acute fracture. Marrow signal is normal throughout. Intervertebral disc height show mild multilevel height loss, greatest at the C6-C7 level. Cervical cord is normal in course and signal. There is no evidence of cord edema. No abnormal intrathecal filling defects are seen. Included portions of posterior fossa are unremarkable. Pre and paravertebral soft tissue structures are unremarkable. Axial images demonstrate the following: C2-C3 through C5-C6: There is no large disc bulge or focal protrusion. There is no significant spinal canal or neuroforaminal stenosis. C6-C7: There is bilateral uncovertebral hypertrophy with broad-based posterior intervening disc and bilateral ligamentum flavum laxity. As a result, there is moderate stenosis of the spinal canal and bilateral neural foramen. C7-T1: There is no large disc bulge or focal protrusion. There is no significant spinal canal or neuroforaminal stenosis. IMPRESSION: 1. Degenerative changes of the cervical spine at the C6-C7 level as above. 2. No acute fracture or dislocation. Dictated by: Dictated on workstation # [id number]
== END ==
LOC: RAD 05-05 07:30
PROVIDERS: ATTEND Nurse Practitioner Family
DX: M47.22 Other spondylosis with radiculopathy, cervical region (principal)
CPT/HCPCS: 72141

== ENCOUNTER 2022-06-21 08:01 | Outpatient (RCR) | payer BC | END 2022-06-21 09:00 | disposition home or self-care (01) | PROVIDERS: ATTEND Nurse Practitioner Family | DX: M54.12 Radiculopathy, cervical region (principal); I10 Essential (primary) hypertension ==